=== PATIENT | female | born 1985 | race Two or more races ===

== ENCOUNTER 2016-06-23 02:25 | Emergency (ER) | payer OTHER ==
--- NOTE | ~2016-06-23 | CR20 ---
[facility] A Service of [facility] RADIOLOGY TEXT RESULTS PATIENT: JL CARR LOCATION: [facility] : 81 UNIT #: [id number] AGE: [address]: Luan Degroot MD SEX: F ORDER DR: [id number] [facility] [address] [facility]. [place], [place] [address] [id number] MR#: [id number] Acc #: [id number] NAME: JL CARR : 1985 SEX: F STUDY DATE/TIME: 06/23/2016 1:27 UNIT: [facility] ROOM: STUDY DESCRIPTION: CR Ankle Min 3 Views Lt Attending Physician: Luan Degroot M.D. Ordering Physician: Ed Lars Suarez M.D. Primary Care Physician: Primary Care Physician No MEDICAL IMAGING REPORT This report is preliminary unless electronic signature is present EXAM Left ankle HISTORY Left ankle pain after falling off steps tonight FINDINGS AP, lateral, and oblique projections of the ankle show satisfactory integrity of the joint mortise with a smooth articular surface. There is no identifiable fracture, dislocation, or radiopaque foreign body. IMPRESSION Normal ankle. Dictated by... Pierre Elena M.D. THIS IS AN ELECTRONICALLY VERIFIED REPORT Pierre Elena M.D. at 06/23/2016 9:54 PM FEL/to TD: 06/23/2016 18:24 JOB #: [id number] MEDICAL IMAGING REPORT Page 1 of 1 COPY
== END 2016-06-23 02:35 | disposition home or self-care (01) ==
LOC: CED 02:25
DX: S93.492A Sprain of other ligament of left ankle, initial encounter (principal); W10.9XXA Fall (on) (from) unspecified stairs and steps, initial encounter; X50.1XXA Overexertion from prolonged static or awkward postures, initial encounter; Y92.69 Other specified industrial and construction area as the place of occurrence of the external cause; Y99.0 Civilian activity done for income or pay
CPT/HCPCS: 29515; 73610; 99283